=== PATIENT | male | born 1960 ===

== ENCOUNTER 2017-05-31 18:55 | Emergency (ER) | payer MEDICAID, MEDICARE ==
[2017-05-31 19:14] VITALS: BMI 26.6
--- NOTE | 2017-05-31 19:30 | C.PDOC ---
History Of Present Illness 56yo male, brought to ED by EMS after found publicly intoxicated. Patient admits to drinking all day today. He denies any suicidal or homicidal ideation. He has no other medical complaints. Time Seen by Provider: 05/31/17 19:29 Chief Complaint (Nursing): Substance Abuse History Per: EMS History/Exam Limitations: intoxication Current Symptoms Are (Timing): Still Present Modifying Factor(s): Alcohol Associated Symptoms: denies: Suicidal Thoughts, Suicidal Plan Past Medical History Reviewed: Historical Data, Nursing Documentation, Vital Signs Vital Signs: Last Vital Signs Temp 97.9 F 05/31/17 22:02 Pulse 69 06/01/17 03:54 Resp 16 06/01/17 03:54 BP 113/79 06/01/17 01:06 Pulse Ox 97 06/01/17 01:06 - Medical History PMH: Arthritis, Depression, HTN, Hypercholesterolemia Surgical History: Hernia Repair Family History: States: Unknown Family Hx - Social History Hx Tobacco Use: Yes Hx Alcohol Use: Yes Hx Substance Use: No (unknown) - Immunization History Hx Tetanus Toxoid Vaccination: No Hx Influenza Vaccination: No Hx Pneumococcal Vaccination: No Review Of Systems Constitutional: Negative for: Fever, Chills Cardiovascular: Negative for: Chest Pain Respiratory: Negative for: Shortness of Breath Gastrointestinal: Negative for: Abdominal Pain Psych: Positive for: Other (alcohol use). Negative for: Suicidal ideation Physical Exam - Physical Exam Appears: No Acute Distress Skin: Warm, Dry Head: Atraumatic Eye(s): bilateral: Normal Inspection Oral Mucosa: Other (alcohol on breath) Neck: Normal ROM, Supple Chest: Symmetrical Cardiovascular: Rhythm Regular Respiratory: No Rales, No Rhonchi, No Wheezing Gastrointestinal/Abdominal: Soft, No Tenderness Extremity: No Deformity, Other (moving all extremities) ED Course And Treatment O2 Sat by Pulse Oximetry: 100 (RA) Pulse Ox Interpretation: Normal Reevaluation Time: 05:35 Reassessment Condition: Improved Disposition Counseled Patient/Family Regarding: Studies Performed, Diagnosis, Need For Followup - Disposition Referrals: [facility] at [facility] [Outside] Disposition: HOME/ ROUTINE Disposition Time: 19:29 Condition: FAIR Instructions: Alcohol Abuse and Alcoholism (DC) Forms: [employer] (Uzbek) - Clinical Impression Clinical Impression: Alcohol abuse, Alcohol intoxication - Scribe Statement The provider has reviewed the documentation as recorded by the Scribe (Hilda Simmons) Provider Attestation: All medical record entries made by the Nicholas were at my direction and personally dictated by me. I have reviewed the chart and agree that the record accurately reflects my personal performance of the history, physical exam, medical decision making, and the department course for this patient. I have also personally directed, reviewed, and agree with the discharge instructions and disposition.
[2017-06-01 06:22] VITALS: BP 112/68; PULSE 72; RESP 18; TEMP 98.3; O2SAT 97
== END 2017-06-01 06:18 | disposition home or self-care (01) ==
LOC: C.ER 18:55
DX: F10.129 Alcohol abuse with intoxication, unspecified (principal)

== ENCOUNTER 2017-08-07 16:52 | Emergency (ER) | payer MEDICARE, OTHER ==
[2017-08-07 16:52] VITALS: BMI 26.6
[2017-08-07 17:14] VITALS: BP 123/74; PULSE 94; RESP 18; TEMP 98.2; O2SAT 98
[2017-08-07] MEDS ORDERED: Lidocaine 1% Inj (20ml) INFIL ONE (18:04)
[2017-08-07] MEDS ORDERED: Tdap Vaccine 0.5 ml Vial (10-64 yrs) IM ONE ×2 (18:05→18:36)
[2017-08-07] MEDS ORDERED: Lidocaine Hydrochloride 5 ML INJ ONE (18:23)
--- NOTE | 2017-08-07 18:43 | C.PDOC ---
History Of Present Illness 57 y/o male brought to ED by EMS for acute ETOH intoxication and s/p fall. Patient sustained 1cm laceration to right forehead and loc is unknown. Patient denies vision changes, nausea, vomiting or any other complaints at this time. Time Seen by Provider: 08/07/17 17:20 Chief Complaint (Nursing): Substance Abuse History Per: Patient, EMS History/Exam Limitations: intoxication Onset/Duration Of Symptoms: Hrs Current Symptoms Are (Timing): Still Present Suicide/Self Injury Attempted (Context): None Modifying Factor(s): Alcohol Past Medical History Reviewed: Historical Data, Nursing Documentation, Vital Signs Vital Signs: Last Vital Signs Temp 98.2 F 08/07/17 17:11 Pulse 94 H 08/07/17 17:11 Resp 18 08/07/17 17:11 BP 123/74 08/07/17 17:11 Pulse Ox 98 08/07/17 19:14 - Medical History PMH: Arthritis, Depression, HTN, Hypercholesterolemia Surgical History: Hernia Repair Family History: States: No Known Family Hx - Social History Hx Tobacco Use: Yes Hx Alcohol Use: Yes Hx Substance Use: No (unknown) - Immunization History Hx Tetanus Toxoid Vaccination: No Hx Influenza Vaccination: No Hx Pneumococcal Vaccination: No Review Of Systems Review Of Systems: ROS cannot be obtained secondary to pt's inabilty to answer questions. (intoxicated) Physical Exam - Physical Exam Appears: Non-toxic, No Acute Distress, Other (Slurred speech) Skin: Warm, Dry, No Rash Head: Normacephalic, Abrasion (to left cheek ), Laceration (1cm deep to right forehead), Other (No coats sign. No orbital tenderness) Eye(s): bilateral: PERRL, EOMI, Other (No raccoon eyes) Oral Mucosa: Moist Neck: Normal ROM, No Midline Cervical Tenderness, Supple Cardiovascular: Rhythm Regular Respiratory: Normal Breath Sounds, No Rales, No Rhonchi, No Wheezing Gastrointestinal/Abdominal: Soft, No Tenderness, No Guarding, No Rebound Neurological/Psych: Oriented x3, No Normal Speech (slurred speech), Normal Cognition ED Course And Treatment O2 Sat by Pulse Oximetry: 98 (RA) Pulse Ox Interpretation: Normal Laceration - Laceration Repair Right forehead Wound Length (In cm): 1 Description Of Wound: Linear Wound Cleansed With: Betadine, Sterile Saline Anesthesia: Lidocaine 1% Wound Examination: Irrigated With Saline, No FB With Wound Exploration, No Tendon Injury With Wound Exploration Wound Closure: Suture (3) Suture Technique And Material Used: Nylon (5-O) Disposition - Disposition Referrals: Wade Lott III, MD [Staff Provider] - Disposition: HOME/ ROUTINE Disposition Time: 22:00 Condition: GOOD Additional Instructions: HOLLY POLK, thank you for letting us take care of you today. Your provider was Elliot Corbin DO and you were treated for ETOH/LACERATION TO HEAD. The emergency medical care you received today was directed at your acute symptoms. If you were prescribed any medication, please fill it and take as directed. It may take several days for your symptoms to resolve. Return to the Emergency Department if your symptoms worsen, do not improve, or if you have any other problems. Please contact your doctor or call one of the physicians/clinics you have been referred to that are listed on the Patient Visit Information form that is included in your discharge packet. Bring any paperwork you were given at discharge with you along with any medications you are taking to your follow up visit. Our treatment cannot replace ongoing medical care by a primary care provider outside of the emergency department. Thank you for allowing the [facility] team to be part of your care today. Follow up with your primary care doctor in 5-7 days for removal of your stitches. Follow up with the orthopedic doctor in 5-7 days for evaluation of your shoulder. Prescriptions: Ibuprofen [Motrin] 600 mg PO Q6 PRN #20 tab PRN Reason: Pain, Moderate (4-7) Instructions: Laceration Repair With Stitches (DC), Shoulder Sprain (DC) Forms: [employer] (Monegasque), General Discharge Instructions - Clinical Impression Clinical Impression: Laceration, Alcohol intoxication, Sprain of shoulder, right - PA / STUDY ABROAD COORDINATOR / Resident Statement MD/DO has reviewed & agrees with the documentation as recorded. - Scribe Statement The provider has reviewed the documentation as recorded by the Nicholas Hdz All medical record entries made by the Scribsrinath were at my direction and personally dictated by me. I have reviewed the chart and agree that the record accurately reflects my personal performance of the history, physical exam, medical decision making, and the department course for this patient. I have also personally directed, reviewed, and agree with the discharge instructions and disposition.
--- NOTE | 2017-08-08 07:39 | CT ---
PROCEDURE: CT HEAD WITHOUT CONTRAST. HISTORY: intox and fall COMPARISON: None available. TECHNIQUE: Axial computed tomography images were obtained through the head/brain without intravenous contrast. Radiation dose: Total exam DLP = 729 mGy-cm. This CT exam was performed using one or more of the following dose reduction techniques: Automated exposure control, adjustment of the mA and/or kV according to patient size, and/or use of iterative reconstruction technique. FINDINGS: HEMORRHAGE: No intracranial hemorrhage. BRAIN: No mass effect or edema. No atrophy or chronic microvascular ischemic changes. VENTRICLES: Unremarkable. No hydrocephalus. CALVARIUM: Unremarkable. PARANASAL SINUSES: Unremarkable as visualized. No significant inflammatory changes. MASTOID AIR CELLS: Unremarkable as visualized. No inflammatory changes. OTHER FINDINGS: None. IMPRESSION: Normal CT of the Head.
--- NOTE | 2017-08-08 09:05 | RAD ---
PROCEDURE: Radiographs of the Right Shoulder HISTORY: r/o fx COMPARISON: No prior. FINDINGS: BONES: A 3 x 1 mm flake like ossification projects superior to the diann me an- a osseous avulsion and/or chip fracture fragment here is a consideration. The soft tissue swelling appears more medial to this where superior acromial spurring at the acromioclavicular joint level is noted. Clinical correlation is needed regarding chronicity of this appearance of this flake fracture-like fragment. JOINTS: . Glenohumeral and acromioclavicular arthrosis SOFT TISSUES: Normal. OTHER FINDINGS: None. IMPRESSION: Superior carrier chrome we all sliver like calcification ossification resembling a flake like fracture fragment -chronicity unknown. Correlate clinically. Acromioclavicular and glenohumeral joint arthrosis. Superior acromial soft tissue swelling. Comments: Study marked for PA review.
== END 2017-08-07 21:45 | disposition home or self-care (01) ==
LOC: C.ER 16:52
DX: S01.81XA Laceration without foreign body of other part of head, initial encounter (principal); S43.401A Unspecified sprain of right shoulder joint, initial encounter; W18.30XA Fall on same level, unspecified, initial encounter; Y92.9 Unspecified place or not applicable; F10.129 Alcohol abuse with intoxication, unspecified; Z23 Encounter for immunization

== ENCOUNTER → 2017-08-09 16:49 | Emergency (ER) | payer MEDICARE, OTHER ==
[2017-08-09 16:49] VITALS: BMI 26.6
== END | disposition left against medical advice (07) ==
LOC: C.ER 16:49
DX: Z02.89 Encounter for other administrative examinations (principal); F10.10 Alcohol abuse, uncomplicated

== ENCOUNTER 2018-02-17 18:26 | Emergency (ER) | payer MEDICARE, OTHER ==
[2018-02-17 18:26] VITALS: BMI 25.8
--- NOTE | 2018-02-17 20:06 | C.PDOC ---
History Of Present Illness 57 year old male brought in via EMS for public intoxication. Denies any injuries or complaints at this time. Time Seen by Provider: 02/17/18 19:00 Chief Complaint (Nursing): Substance Abuse History Per: Patient, EMS History/Exam Limitations: no limitations Onset/Duration Of Symptoms: Hrs Current Symptoms Are (Timing): Still Present Suicide/Self Injury Attempted (Context): None Modifying Factor(s): Alcohol Associated Symptoms: denies: Depression, Suicidal Thoughts Involuntary Hold By: None Recent travel outside of the [place]: No Past Medical History Reviewed: Historical Data, Nursing Documentation, Vital Signs Vital Signs: Last Vital Signs Temp 98.1 F 02/17/18 18:35 Pulse 86 02/17/18 19:54 Resp 18 02/17/18 19:54 BP 118/73 02/17/18 19:54 Pulse Ox 99 02/17/18 19:54 - Medical History PMH: Arthritis, Depression, HTN, Hypercholesterolemia Surgical History: Hernia Repair (x2) Family History: States: Unknown Family Hx - Social History Hx Tobacco Use: Yes Hx Alcohol Use: Yes Hx Substance Use: No (unknown) - Immunization History Hx Tetanus Toxoid Vaccination: No Hx Influenza Vaccination: No Hx Pneumococcal Vaccination: No Review Of Systems Except As Marked, All Systems Reviewed And Found Negative. Constitutional: Positive for: Other (ETOH intoxication) Physical Exam - Physical Exam Appears: Non-toxic, No Acute Distress, Other (ETOH on breath, no sign of injury) Skin: Normal Color, Warm, Dry Head: Atraumatic, Normacephalic Eye(s): bilateral: Normal Inspection Oral Mucosa: Moist Neck: Normal, No Midline Cervical Tenderness, No Paracervical Tenderness, Supple Chest: Symmetrical, No Tenderness Cardiovascular: Rhythm Regular Respiratory: Normal Breath Sounds, No Rales, No Rhonchi, No Wheezing Gastrointestinal/Abdominal: Soft, No Tenderness Back: No Vertebral Tenderness, No Paraspinal Tenderness Extremity: Normal ROM (x4) Neurological/Psych: Oriented x3, Normal Speech Gait: Steady ED Course And Treatment O2 Sat by Pulse Oximetry: 99 (Room air) Pulse Ox Interpretation: Normal Disposition Counseled Patient/Family Regarding: Studies Performed, Diagnosis, Need For Followup - Disposition Referrals: [facility] [Outside] Disposition: HOME/ ROUTINE Disposition Time: 20:40 Condition: STABLE Instructions: Alcohol Abuse and Alcoholism (DC) Forms: [employer] (Armenian) Print Language: YAKUT - POA Present On Arrival: None - Clinical Impression Clinical Impression: Alcohol intoxication - Scribe Statement The provider has reviewed the documentation as recorded by the Scribe Fred Townsend All medical record entries made by the Scribe were at my direction and pers onally dictated by me. I have reviewed the chart and agree that the record accurately reflects my personal performance of the history, physical exam, medical decision making, and the department course for this patient. I have also personally directed, reviewed, and agree with the discharge instructions and disposition.
[2018-02-17 21:00] VITALS: BP 120/65; PULSE 84; RESP 20; TEMP 98.6; O2SAT 98
== END 2018-02-17 21:00 | disposition home or self-care (01) ==
LOC: C.ER 18:26
DX: F10.129 Alcohol abuse with intoxication, unspecified (principal); E78.00 Pure hypercholesterolemia, unspecified; I10 Essential (primary) hypertension; Z72.0 Tobacco use